=== PATIENT | female | born 1960 | race Caucasian/White ===

== ENCOUNTER → 2024-03-04 12:24 | Outpatient (REF) | payer MEDICARE, SELFPAY | LOC: HWRAD 12:24 | PROVIDERS: ATTENDING PHYSICIAN Physician Assistant | DX: R05.3 Chronic cough (principal) | CPT/HCPCS: 71046 ==

== ENCOUNTER → 2024-08-03 13:40 | Outpatient (REF) | payer MEDICARE, SELFPAY | LOC: PAVMRI 13:40 | PROVIDERS: ATTENDING PHYSICIAN Physician Assistant; FAMILY PHYSICIAN Physician Assistant Medical | DX: M25.561 Pain in right knee (principal); M23.91 Unspecified internal derangement of right knee | CPT/HCPCS: 73721 ==

== ENCOUNTER → 2024-08-17 10:38 | Outpatient (REF) | payer MEDICARE, SELFPAY | LOC: WDC 10:38 | PROVIDERS: ATTENDING PHYSICIAN Obstetrics & Gynecology; FAMILY PHYSICIAN Physician Assistant Medical | DX: M85.80 Other specified disorders of bone density and structure, unspecified site (principal); Z78.0 Asymptomatic menopausal state; Z12.31 Encounter for screening mammogram for malignant neoplasm of breast | CPT/HCPCS: 77063; 77067; 77080 ==